=== PATIENT | female | born 1965 | race Caucasian/White ===

== ENCOUNTER 2024-01-31 09:49 | Outpatient (OUT) | payer OTHER, SELFPAY ==
--- NOTE | 2024-01-31 | XR_ITS ---
The [address] [address] Patient Name: DELFINO SMITH MRN: [id number] date: 1965 Sex: F Assigned Patient Location: Current Patient Location: Accession/Order Number: [id number] Exam Date: 01/31/2024 10:00 Report Date: 02/01/2024 07:21 At the request of: COLTON HERNANDEZ Procedure: XR elbow RT min 3V PROCEDURE: XR elbow RT min 3V COMPARISON: None. HISTORY: RIGHT ELBOW PAIN FINDINGS: BONES:No fracture, acute abnormality, or significant arthropathy. SOFT TISSUES:Negative. No visible soft tissue swelling. EFFUSION:None visible. OTHER: Negative. XR/XR elbow RT min 3V IMPRESSION: No acute radiographic abnormality Electronically authenticated by: ISAI GARCIA Date: 02/01/2024 07:21
== END 2024-01-31 09:50 | disposition home or self-care (01) ==
LOC: EC 09:58
PROVIDERS: PCP Orthopaedic Surgery; Visit Provider Orthopaedic Surgery
DX: M25.521 Pain in right elbow (principal)
CPT/HCPCS: 73080

== ENCOUNTER 2024-10-26 10:32 | Outpatient (RCR) | payer OTHER, SELFPAY | END 2024-11-07 15:04 | disposition home or self-care (01) | LOC: PT 10:32 | PROVIDERS: PCP Orthopaedic Surgery; Visit Provider Physician Assistant | DX: M77.11 Lateral epicondylitis, right elbow (principal) | CPT/HCPCS: 20560; 97140 ==

== ENCOUNTER 2024-11-08 10:14 | Outpatient (RCR) | payer OTHER, SELFPAY | END 2024-12-05 14:02 | disposition home or self-care (01) | LOC: PT 10:14 | PROVIDERS: PCP Orthopaedic Surgery; Visit Provider Physician Assistant | DX: M77.11 Lateral epicondylitis, right elbow (principal) | CPT/HCPCS: 20560; 97140 ==

== ENCOUNTER 2024-12-22 13:16 | Outpatient (OUT) | payer SELFPAY ==
--- NOTE | 2024-12-22 13:20 | MR_ITS ---
The [address] [address] Patient Name: DELFINO SMITH MRN: [id number] date: 1965 Sex: F Assigned Patient Location: MRI Current Patient Location: Accession/Order Number: [id number] Exam Date: 12/22/2024 15:00 Report Date: 12/23/2024 09:05 At the request of: COLTON HERNANDEZ Procedure: MR elbow RT wo con HISTORY: Chronic right elbow pain along the lateral aspect of the elbow for the past year. Evaluate for lateral epicondylitis. MR elbow RT wo con: 12/22/2024 3:00 PM EST COMPARISON: Radiographs right elbow 01/31/2024. TECHNIQUE: Coronal T1, T2 gradient, STIR, axial proton density, T2, and sagittal STIR images of the elbow were obtained without contrast. FINDINGS: LIGAMENTS AND TENDONS: There is severe tendinopathy of the common extensor tendon origin. Superimposed on this tendinopathy is a high-grade partial-thickness tear involving the deep fibers of the proximal 9 mm of the tendon. This tear involves at least 75% of tendon thickness. The underlying radial collateral ligament complex appears grossly intact. The common flexor tendon origin and ulnar collateral ligament complex appear within normal limits. The biceps tendon appears within normal limits. The triceps tendon appears within normal limits. BONES AND JOINTS: The bone marrow signal intensity is age appropriate. No significant osteochondral defect is seen. No loose body is identified. There is no significant joint effusion. MUSCLES AND SOFT TISSUES: The visualized musculature appears of normal signal intensity. No significant soft tissue swelling is seen. CUBITAL TUNNEL: No space-occupying mass is seen in the cubital tunnel and the visualized ulnar nerve appears grossly within normal limits. MR/MR elbow RT wo con IMPRESSION: Severe tendinopathy of the common extensor tendon origin with a superimposed high-grade partial-thickness tear involving the deep fibers of the proximal 9 mm of the tendon. Electronically authenticated by: LUIS KENNY Date: 12/23/2024 09:05
== END 2024-12-22 13:17 | disposition home or self-care (01) ==
LOC: MRI 13:16
PROVIDERS: PCP Orthopaedic Surgery; Visit Provider Orthopaedic Surgery
DX: M77.11 Lateral epicondylitis, right elbow (principal); S56.511D Strain of other extensor muscle, fascia and tendon at forearm level, right arm, subsequent encounter
CPT/HCPCS: 73221